=== PATIENT | female | born 2000 | race Caucasian/White ===

== ENCOUNTER 2019-10-23 16:56 | Inpatient (IN) ==
[2019-10-23] MEDS ORDERED: ONDANSETRON 4 MG/2 ML VIAL IV ONE (17:38)
[2019-10-23] MEDS ORDERED: LACTATED RINGERS 1,000 ML IV ONE (17:38)
--- NOTE | 2019-10-23 17:41 | Emergency Department Note ---
HPI General Chief complaint: Sorethroat Stated complaint: sorethroat Time Seen by Provider: 10/23/19 17:11 Source: patient Mode of arrival: ambulatory Limitations: no limitations History of Present Illness HPI Narrative: Narrative: This patient has been ill for the last 2 days with sore throat slight chest discomfort but no cough or shortness of breath. Has also had nausea and vomiting but no diarrhea or abdominal pain. Nothing is making the sore throat worse or better doing the strep swab made her vomit. This patient has apparently had some borderline diabetes in the past and does not have a family history of diabetes in a.m. Onset (ago): day(s) Related Data Home Medications Medication Instructions Recorded Confirmed No Known Home Meds 09/14/17 10/23/19 Allergies Allergy/AdvReac Type Severity Reaction Status Date / Time egg Allergy Unknown Verified 10/23/19 16:58 Influenza Virus Vaccines Allergy Unknown Verified 10/23/19 16:58 Review of Systems ROS ROS Narrative: Narrative: All systems ED: reviewed and negative except as stated. PFSH Narrative Patient History Narrative: Narrative: Medical/Surgical/Family History All Active Problems (Updated 10/23/19 @ 20:43 by Vidal Valera MD) Influenza (Acute) Late menstruation (Acute) Dysmenorrhea (Acute) Exposure to blood or body fluid (Acute) Diabetic keto-acidosis (Acute) Social History Smoking Status: Never smoker Exam Narrative Narrative: Narrative: General Limitations: no limitations Head Head: atraumatic, normocephalic and normal inspection Eye Eye: Present normal appearance, PERRL and EOMI; Absent conjunctival injection ENT ENT: Present normal oropharynx and mucous membranes moist Neck Neck: Present normal inspection and full ROM Chest Chest: Present normal inspection and symmetric chest wall rise Respiratory Respiratory: Present normal lung sounds bilaterally; Absent respiratory distress, rales/crackles and wheezes Cardiovascular Cardiovascular: Present regular rate, normal rhythm and normal heart sounds Adbominal Abdominal: Present soft; Absent distention and tenderness Neurological Neurological: Present alert Psychiatric Psychiatric: Present normal affect Skin Skin: Present warm and dry; Absent diaphoresis Course Vital Signs Vital signs: Vital Signs Temperature 99.4 F H 10/23/19 17:04 Pulse Rate 124 H 10/23/19 17:04 Respiratory Rate 20 10/23/19 17:04 Blood Pressure 157/80 10/23/19 17:04 Temperature 99.4 F H 10/23/19 17:04 Pulse Rate 112 H 10/23/19 18:10 Respiratory Rate 16 10/23/19 20:38 Blood Pressure 135/68 10/23/19 20:38 Pulse Oximetry (%) 97 10/23/19 20:38 MDM MDM Narrative Medical decision making narrative: Narrative: This patient appears to have new diagnosis of diabetes. Blood sugar was 359 hemoglobin A1c was 13.2 and beta hydroxybutyrate was 5.5. Her anion gap was 20 1T CO2 of 15. She was hydrated and given 5 mg of regular insulin IV. I discussed the case with the hospitalist and she will be admitted to the hospital service. Lab Data Lab results reviewed: Yes I reviewed the patient's lab results. Result diagrams: 10/23/19 18:00 10/23/19 18:00 Labs: Lab Results 10/23/19 10/23/19 10/23/19 Range/Units 18:00 18:00 18:00 WBC 8.9 (4.50-11.00) K/mcL RBC 4.19 (3.59-5.38) M/mcL Hgb 12.7 (11.2-15.7) g/dL Hct 37.7 (34.1-44.9) % MCV 90.0 (80.0-100.0) fL MCH 30.3 (26.0-34.0) pg MCHC 33.7 (31.0-36.0) g/dL RDW 13.3 (11.5-14.5) % Plt Count 195 (140-440) K/mcL MPV 11.4 H (7.4-10.4) fL Gran % 74.7 (38.0-78.0) % Lymph % (Auto) 17.6 (15.5-49.0) % Fleming % (Auto) 6.0 (1.0-12.0) % Eos % (Auto) 1.1 (0.0-7.0) % Baso % (Auto) 0.6 (0.0-2.0) % Gran # 6.61 (1.80-8.00) K/mcL Lymph # (Auto) 1.56 (1.50-4.80) K/mcL Fleming # (Auto) 0.53 (0.10-0.90) K/mcL Eos # (Auto) 0.10 (0.00-0.70) K/mcL Baso # (Auto) 0.05 (0.00-0.30) K/mcL Sodium 132 L (133-145) mmol/L Potassium 3.9 (3.3-5.1) mmol/L Chloride 96 (96-108) mmol/L Carbon Dioxide 15 L (22-30) mmol/L Anion Gap 21.0 H (8-16) BUN 6 (6-20) mg/dl Creatinine 0.7 (0.6-1.1) mg/dl GFR Calculation 124 Glucose 359 H (70-105) mg/dL Hemoglobin A1c 13.2 H (4.0-6.0) % HGB Estim Average Glucose 332 mg/dL Calcium 9.4 (8.6-10.4) mg/dl Total Bilirubin 0.6 (0.0-1.0) mg/dL AST 141 H (0-37) U/l ALT 170 H (0-40) U/l Alkaline Phosphatase 131 H (39-117) U/L Total Protein 7.4 (5.9-8.4) gm/dL Albumin 3.9 (3.2-5.2) gm/dL Globulin 3.5 (2.2-3.7) gm/dL Albumin/Globulin Ratio 1.1 (1.0-2.3) Beta-Hydroxybutyrate 5.50 H (< 0.27) mmol/L Radiology Data Radiology results reviewed: Yes I reviewed the patient's radiology results. Discharge Plan Patient/Caregiver Discharge Instructions Pt seen by DOCUMENTATION CLERK/PA only: No Clinical Impression: Diabetic keto-acidosis Patient Disposition: Xfer As Inpt ([facility]) Follow up with: No,PCP [Primary Care Provider] - Prescriptions: No Action No Known Home Meds RF: 0
[2019-10-23 18:39] LABS: Basophils # (Auto) 0.05 K/mcL (0.00-0.30); Basophils % (Auto) 0.6 % (0.0-2.0); Eosinophils % (Auto) 1.1 % (0.0-7.0); Granulocytes % (Auto) 74.7 % (38.0-78.0); Hematocrit 37.7 % (34.1-44.9); Hemoglobin 12.7 g/dL (11.2-15.7); Lymphocytes # (Auto) 1.56 K/mcL (1.50-4.80); Lymphocytes % (Auto) 17.6 % (15.5-49.0); Mean Corpuscular HGB Conc 33.7 g/dL (31.0-36.0); Mean Platelet Volume 11.4 fL (7.4-10.4); Monocytes # (Auto) 0.53 K/mcL (0.10-0.90); Platelet Count 195 K/mcL (140-440); RBC 4.19 M/mcL (3.59-5.38); Red Cell Distribution Width 13.3 % (11.5-14.5); WBC 8.9 K/mcL (4.50-11.00)
[2019-10-23 19:00] LABS: ALT/SGPT 170 U/l (0-40); AST/SGOT 141 U/l (0-37); Albumin 3.9 gm/dL (3.2-5.2); Albumin/Globulin Ratio 1.1 (1.0-2.3); Alkaline Phosphatase 131 U/L (39-117); Bilirubin,Total 0.6 mg/dL (0.0-1.0); Blood Urea Nitrogen 6 mg/dl (6-20); Calcium 9.4 mg/dl (8.6-10.4); Carbon Dioxide 15 mmol/L (22-30); Chloride 96 mmol/L (96-108); Globulin 3.5 gm/dL (2.2-3.7); Glomerular Filtration Rate 124; Glucose 359 mg/dL (70-105)
[2019-10-23] MEDS ORDERED: 0.9 % SODIUM CHLORIDE 1,000 ML IV ONE (19:34)
[2019-10-23] MEDS ORDERED: INSULIN REGULAR, HUMAN 1 UNIT/0.01 ML UNIT IV ONE (19:35)
[2019-10-23 20:08] LABS: Estimated Average Glucose(eAG) 332 mg/dL; Hemoglobin A1C 13.2 % HGB (4.0-6.0)
[2019-10-23] MEDS ORDERED: INSULIN REGULAR, HUMAN 50 UNIT in 0.9 % SODIUM CHLORIDE 99.5 ML IV SCH ×2 (20:45→22:08)
[2019-10-23] MEDS ORDERED: INSULIN REGULAR, HUMAN 1 UNIT/0.01 ML UNIT ONE (20:57)
--- NOTE | 2019-10-23 21:17 | Ultrasound Report ---
INDICATION: liver, GB TECHNIQUE: Grayscale and color flow Doppler spectral imaging COMPARISON: None. FINDINGS: Gallbladder:Negative. No cholelithiasis. No gallbladder wall thickening or pericholecystic fluid Common bile duct:No intra or extrahepatic bile duct dilatation.. Common bile duct measures4 mm Liver:No solid or cystic hepatic mass. Liver contour is smooth. No ascites. Liver is mildly echogenic. There is attenuation of sound relative to the right kidney suggesting hepatic steatosis. No focal abnormality. Liver actpxecy98.9 cm Portal vein:Normal hepatopedal portal venous flow Pancreas:Visualized portions of the pancreas are normal IMPRESSION: 1. Mildly echogenic liver 2. Otherwise negative examination Interpreted and Authenticated by: Vern Franklin 10/23/19
--- NOTE | 2019-10-23 21:20 | Internal Med History&Physical ---
HPI History of Present Illness Patient information: Note initiated : 10/23/19 at 9:13 pm Service Date, if different from initiated Date: [] Patient: Colette De La Rosa a 19 y/o F admitted on for sorethroat. Chief Complaint: [] History of present illness: Ms. De La Rosa is a 19 year old F Presents the ED with sore throat for the last couple days. He denies being around any sick contacts or any with coronavirus. She may feel little fatigued. she had nausea vomiting but no diarrhea or abdominal pain. Mild headache. Rapid strep screen was negative in the ED. Complaint of polyuria polydipsia. She is not aware of of the diagnosis of diabetes although she is believes she is on glipizide. She also is on metformin but she does have polycystic ovarian syndrome. In ER she was evaluated and labs presented are concerning for new diabetes, DKA status. Blood glucose was 359 with a bicarb of 15. A1c is 13. She had mildly elevated liver enzymes. Liver ultrasound showed fatty liver per ER physician. He was also tested for COVID. Review of Systems: Positive as above. Denies fever/chills/chest or abdominal pain/cough/dyspnea/diarrhea. Remaining 10 point review of system reviewed negative. PFSH PFSH All Active Problems (Updated 10/23/19 @ 20:43 by Vidal Valera MD) Influenza (Acute) Late menstruation (Acute) Dysmenorrhea (Acute) Exposure to blood or body fluid (Acute) Diabetic keto-acidosis (Acute) Social History (Updated 10/23/19 @ 21:17 by Liam Scott DO) smoking status: Never smoker additional history: Past medical history: PCOS obesity She is not aware of a diagnosis of diabetes but she says she is on glipizide Past surgical history: None Family history: Mother had hyperlipidemia and she does not know her father's history Social history: Patient denies tobacco drinks alcohol socially denies drug use lives with family MEDS/ALLERGIES Home Medications and Allergies Home Medications Medication Instructions Recorded Confirmed Type No Known Home Meds 09/14/17 10/23/19 History Allergies Allergy/AdvReac Type Severity Reaction Status Date / Time egg Allergy Unknown Verified 10/23/19 16:58 Influenza Virus Vaccines Allergy Unknown Verified 10/23/19 16:58 EXAM Constitutional Vitals: Temp Pulse Resp BP Pulse Ox 99.4 F H 112 H 16 135/68 97 10/23/19 17:04 10/23/19 18:10 10/23/19 20:38 10/23/19 20:38 10/23/19 20:38 Exam: General: Alert, Awake, No acute Distress, obese Eyes/N/T: EOMI, PERRL, dry MM Head/Neck: neck supple, normocephalic atraumatic CV: RRR, No murmurs, normal s1/s2 Pulm: Clear b/l, no wheezing/rhonchi/rales Abd: soft, nontender, +BS x4 Ext: no clubbing/cyanosis/edema Neuro: Alert, no focal deficits, moves all extremities, CN 2-12 grossly intact, symmetrical strength b/l upper/lower, sensations intact b/l upper/lower Skin: warm/dry DATA Data Completed and Pending Labs: Labs from last 24 hours 10/23/19 10/23/19 10/23/19 18:13 18:00 18:00 WBC RBC Hgb Hct MCV MCH MCHC RDW Plt Count MPV Gran % Lymph % (Auto) [place] % (Auto) Eos % (Auto) Baso % (Auto) Gran # Lymph # (Auto) [place] # (Auto) Eos # (Auto) Baso # (Auto) Sodium Potassium Chloride Carbon Dioxide Anion Gap BUN Creatinine GFR Calculation Glucose Hemoglobin A1c Estim Average Glucose Calcium Total Bilirubin AST ALT Alkaline Phosphatase Total Protein Albumin Globulin Albumin/Globulin Ratio Beta-Hydroxybutyrate TSH Pending Monoscreen Pending SARS-CoV-2 (PCR) Pending 10/23/19 10/23/19 10/23/19 18:00 18:00 18:00 WBC 8.9 RBC 4.19 Hgb 12.7 Hct 37.7 MCV 90.0 MCH 30.3 MCHC 33.7 RDW 13.3 Plt Count 195 MPV 11.4 H Gran % 74.7 Lymph % (Auto) 17.6 [place] % (Auto) 6.0 Eos % (Auto) 1.1 Baso % (Auto) 0.6 Gran # 6.61 Lymph # (Auto) 1.56 [place] # (Auto) 0.53 Eos # (Auto) 0.10 Baso # (Auto) 0.05 Sodium 132 L Potassium 3.9 Chloride 96 Carbon Dioxide 15 L Anion Gap 21.0 H BUN 6 Creatinine 0.7 GFR Calculation 124 Glucose 359 H Hemoglobin A1c 13.2 H Estim Average Glucose 332 Calcium 9.4 Total Bilirubin 0.6 AST 141 H ALT 170 H Alkaline Phosphatase 131 H Total Protein 7.4 Albumin 3.9 Globulin 3.5 Albumin/Globulin Ratio 1.1 Beta-Hydroxybutyrate 5.50 H TSH Monoscreen SARS-CoV-2 (PCR) A/P Narrative A/P Narrative: A: *DM (?new diagnosis as pt not aware of dx but she states she's on glipizide), with DKA: -A1c 13.2 *AG Met Acidosis: 2/2 above *Mild transaminitis: 2/2 likely fatty liver as noted on ultrasound vs viral *Pharyngitis: quick strep neg, covid pending *Obesity: * P: -insulin gtt then when gap closed> lantus, SSI, Metformin -IVF -f/u electrolytes and AG -hepatitis panel -pending covid and monospot -DM education, dietary/lifestyle changes -autoantibodies -TSH -medication reconciliation -ppx: lovenox Time Spent With Patient Time: Total time spent is greater than 50% in coordination of care (as documented) at patient's floor/unit and/or counseling patient:
[2019-10-23 21:34] LABS: Thyroid Stimulating Hormone 1.13 uIU/ml (0.27-5.01)
[2019-10-23 21:50] LABS: ABG Methemoglobin 0.3 % (0.4-1.5); Total Hemoglobin 11.2 gm/dL (12.0-15.0); VBG Base Excess -7.3 (-2.0-2.0); VBG HCO3 17.4 mmol/L (24.0-28.0); VBG Oxygen Saturation 82.5 % (40.0-70.0); VBG PCO2 32.7 mmHg (41.0-51.0); VBG PH 7.35 U (7.32-7.42); VBG PO2 60 mmHg (25-40); VBG Total CO2 18.4 mmol/L (25.0-29.0)
[2019-10-23] MEDS: INSULIN REGULAR, HUMAN 50 UNIT in 0.9 % SODIUM CHLORIDE 99.5 ML IV SCH (22:00)
[2019-10-23] MEDS ORDERED: POLYETHYLENE GLYCOL 3350 17 GM PACKET PO PRN (22:08)
[2019-10-23] MEDS ORDERED: POTASSIUM CHLORIDE 40 MEQ in DEXTROSE 5% IN WATER 500 ML IV PRN (22:08)
[2019-10-23] MEDS ORDERED: SENNOSIDES 1 TABLET PO PRN (22:08)
[2019-10-23] MEDS ORDERED: 0.9 % SODIUM CHLORIDE 1,000 ML IV SCH (22:08)
[2019-10-23] MEDS ORDERED: POTASSIUM CHLORIDE 20 MEQ TABLET PO PRN (22:08)
[2019-10-23 22:15] LABS: Amphetamine Screen,Urine NONE DETECTED (NONDETECTED); Barbiturate Screen,Urine NONE DETECTED (NONDETECTED); Benzodiazepines Screen,Urine NONE DETECTED (NONDETECTED); Cannabinoid Screen,Urine NONE DETECTED (NONDETECTED); Cocaine Screen,Urine NONE DETECTED (NONDETECTED); Opiate Screen,Urine NONE DETECTED (NONDETECTED); Oxycodone, Urine Screen NONE DETECTED (NONDETECTED); Phencyclidine Screen,Urine NONE DETECTED (NONDETECTED)
[2019-10-23 22:38] LABS: Appearance,Urine CLEAR; Bacteria,Urine 0 /hpf (0); Bilirubin,Urine NEG (NEG); Color,Urine YELLOW; Culture Indicated,Urine NO; Glucose,Urine (UA) >=500 mg/dL (NEG); Ketones,Urine 80 mg/dL (NEG); Leukocyte Esterase,Urine NEG /uL (NEG); Mucus,Urine FEW /hpf (0); Nitrate,Urine NEG (NEG); Protein,Urine 30 mg/dL (NEG); Specific Gravity,Urine 1.038 (1.000-1.035); Urine Blood NEG mg/dL (<0.03); Urine Budding Yeast FEW /hpf (0); Urine RBC 0 /hpf (0-1); Urine Squamous Epithelial Cell 8 /hpf (0-4); Urine WBC 1 /hpf (0-4); Urobilinogen,Urine NEG (NEG)
[2019-10-23] MEDS: DEXTROSE 5%-NS 1,000 ML IV SCH (23:00)
[2019-10-23 23:40] LABS: HDL Cholesterol 18 mg/dl (>40); Non-HDL Cholesterol 273 (LDL TARGET+30); Phosphorous 2.9 mg/dL (2.7-4.5); Triglycerides 1099 mg/dl (<150)
[2019-10-24] MEDS: 0.9 % SODIUM CHLORIDE 10 ML SYRINGE IV SCH ×4 (00:04→20:14)
[2019-10-24] MEDS ORDERED: ACETAMINOPHEN 325 MG TABLET PO ONE (00:34)
[2019-10-24] MEDS: DEXTROSE 5%-NS 1,000 ML IV SCH ×3 (06:08→20:08)
--- NOTE | 2019-10-24 07:35 | Internal Med Progress Note ---
SUBJECTIVE Subjective Patient information: Note initiated : 10/24/19 at 7:32 am Service Date, if different from initiated Date: [] Patient: Colette De La Rosa a 19 y/o F admitted on 10/23/19 for sorethroat. Chief Complaint: [] Interval history: History of present illness: Ms. De La Rosa is a 19 year old F Presents the ED with sore throat for the last couple days. He denies being around any sick contacts or any with coronavirus. She may feel little fatigued. she had nausea vomiting but no diarrhea or abdominal pain. Mild headache. Rapid strep screen was negative in the ED. Complaint of polyuria polydipsia. She is not aware of of the diagnosis of diabetes although she is believes she is on glipizide. She also is on metformin but she does have polycystic ovarian syndrome. In ER she was evaluated and labs presented are concerning for new diabetes, DKA status. Blood glucose was 359 with a bicarb of 15. A1c is 13. She had mildly elevated liver enzymes. Liver ultrasound showed fatty liver per ER physician. He was also tested for COVID. 10/23 has some nausea and headache but otherwise no new complaints. Tolerating liquids. Follow-up chemistry panel at noon and likely wean off insulin drip to subcutaneous long-acting. Awaiting home med clarification. Review of Systems: denies fever/chills/vomiting/chest or abdominal pain/cough/dyspnea/diarrhea. Otherwise see above. Constitutional Vitals: Vital Signs Temp Pulse Resp BP Pulse Ox 97.8 F 100 H 22 112/67 94 10/24/19 04:08 10/24/19 07:01 10/24/19 07:01 10/24/19 07:01 10/24/19 07:01 Period Temp Pulse Resp BP Sys/Barnes Pulse Ox Last 24 Hr 97.8 F-99.4 F 95-124 16-28 112-163/62-94 94-98 Intake and Output 10/23/19 10/24/19 10/24/19 21:59 05:59 13:59 Intake Total 1999 1053 327 Output Total 500 Balance 1999 553 327 Weight 98.883 kg Intake & Output: Intake & Output 10/23/19 10/24/19 10/24/19 21:59 05:59 13:59 Intake Total 19993 327 Output Total 500 Balance 1999 553 327 Weight 98.883 kg Intake: IV 1999 1053 27 Sodium Chloride 0.9% 1,000 ml @ 1000 Wide Open IV BOLUS ONE Rx#: [id number] Dextrose 5%-Ns IV Solution 1, 1000 000 ml @ 150 mls/hr IV .Q6H40M [facility] Rx#:[id number] HumuLIN R 50 UNIT In Sodium 53 27 Chloride 0.9% 99.5 ml @ 1 UNIT/ HR 2 mls/hr IV DUR [facility] Rx#: [id number] Lactated Ringers 1,000 ml @ 1000 Wide Open IV BOLUS ONE Rx#: [id number] GI Tube Flush 300 Output: Void Amount 500 Exam: General: Alert, Awake, No acute Distress, obese Eyes/N/T: EOMI, Head/Neck: neck supple, CV: RRR, No murmurs, Pulm: Clear b/l, no wheezing/rhonchi/rales Abd: soft, nontender, +BS x4 Ext: no clubbing/cyanosis/edema Neuro: Alert, no focal deficits, moves all extremities, Skin: warm/dry OBJ DATA Labs CBC & Chem 7: 10/23/19 18:00 10/24/19 05:00 Labs: Abnormal Lab Results 10/23/19 10/23/19 10/23/19 22:38 21:26 20:36 MPV ABG Methemoglobin 0.3 L VBG pCO2 32.7 L VBG pO2 60 H VBG HCO3 17.4 L VBG Total CO2 18.4 L VBG O2 Saturation 82.5 H VBG Base Excess -7.3 L Carboxyhemoglobin 9.4 H Total Hemoglobin 11.2 L Sodium Carbon Dioxide Anion Gap Glucose Hemoglobin A1c AST ALT Alkaline Phosphatase Triglycerides 1099 H Cholesterol 291 H Non-HDL Cholesterol 273 H HDL Cholesterol 18 L Beta-Hydroxybutyrate Ur Specific [place] 1.038 H Urine Protein 30 A Urine Glucose (UA) >=500 A Urine Ketones 80 A Ur Squamous Epith Cells 8 H Urine Yeast (Budding) Few A 10/23/19 10/23/19 10/23/19 18:00 18:00 18:00 MPV 11.4 H ABG Methemoglobin VBG pCO2 VBG pO2 VBG HCO3 VBG Total CO2 VBG O2 Saturation VBG Base Excess Carboxyhemoglobin Total Hemoglobin Sodium 132 L Carbon Dioxide 15 L Anion Gap 21.0 H Glucose 359 H Hemoglobin A1c 13.2 H AST 141 H ALT 170 H Alkaline Phosphatase 131 H Triglycerides Cholesterol Non-HDL Cholesterol HDL Cholesterol Beta-Hydroxybutyrate 5.50 H Ur Specific [place] Urine Protein Urine Glucose (UA) Urine Ketones Ur Squamous Epith Cells Urine Yeast (Budding) Meds: Medications Acetaminophen (Tylenol) 650 mg PO Q6HP PRN PRN Reason: PAIN/FEVER > 101 Diagnostic Test (Pha) (Accu-Chek) 1 each FS Q1 [facility] Last Admin: 10/24/19 07:00 Dose: 1 each Documented by: Enoxaparin Sodium (Lovenox) 40 mg SQ DAILY [facility] Potassium Chloride 40 meq/ (Dextrose) 520 mls @ 130 mls/hr IV UD PRN PRN Reason: Potassium < 3 Magnesium Sulfate (Magnesium Sulfate) 2 gm in 50 mls @ 50 mls/hr IV UD PRN PRN Reason: Magnesium </= 1.6 Insulin Human Regular 50 unit/ (Sodium Chloride) 100 mls @ 2 mls/hr IV DUR [facility]; Protocol Last Titration: 10/24/19 07:05 Dose: 8.5 unit/hr, 17 mls/hr Documented by: Dextrose/Sodium Chloride (Dextrose 5%-Ns Iv Solution) 1,000 mls @ 150 mls/hr IV .Q6H40M [facility] Stop: 10/25/19 10:00 Last Admin: 10/24/19 06:08 Dose: 150 mls/hr Documented by: Ondansetron HCl (Zofran) 4 mg IV Q4HP PRN PRN Reason: Nausea And Vomiting Polyethylene Glycol (Miralax) 17 gm PO DAILYP PRN PRN Reason: Constipation Potassium Chloride (Kdur) 40 meq PO UD PRN PRN Reason: Potssium is 3-3.5 Potassium Chloride (Kdur) 40 meq PO UD PRN PRN Reason: Potassium < 3 Senna (Senokot) 2 tab PO DAILYP PRN PRN Reason: Constipation Sodium Chloride (Saline Flush) 10 ml IV Q8 PRINCE Last Admin: 10/24/19 06:04 Dose: Not Given Documented by: ABG Interpretation ABG results: 10/23/19 21:26 ABG Methemoglobin 0.3 L VBG pH 7.35 VBG pCO2 32.7 L VBG pO2 60 H VBG HCO3 17.4 L VBG Total CO2 18.4 L VBG O2 Saturation 82.5 H VBG Base Excess -7.3 L A/P Narrative A/P Narrative: A: *DM (?new diagnosis as pt not aware of dx but she states she's on glipizide), with DKA: -A1c 13.2 *AG Met Acidosis: 2/2 above *Mild transaminitis: 2/2 likely fatty liver as noted on ultrasound vs viral. hepatitis neg *Pharyngitis: quick strep & monospot neg, covid pending *Obesity: *HLD: recheck lipids when DKA resolved, will check in AM P: -insulin gtt then when gap closed> lantus, SSI, Metformin -IVF -f/u electrolytes and AG -pending covid and monospot -DM education, dietary/lifestyle changes -medication reconciliation -ppx: lovenox Time Spent With Patient Time: Total time spent is greater than 50% in coordination of care (as d ocumented) at patient's floor/unit and/or counseling patient:
[2019-10-24 07:51] LABS: ALT/SGPT 123 U/l (0-40); AST/SGOT 95 U/l (0-37); Albumin 3.5 gm/dL (3.2-5.2); Albumin/Globulin Ratio 1.3 (1.0-2.3); Alkaline Phosphatase 102 U/L (39-117); Bilirubin,Direct 0.2 mg/dL (0.0-0.3); Bilirubin,Total 0.5 mg/dL (0.0-1.0); Blood Urea Nitrogen 4 mg/dl (6-20); Carbon Dioxide 19 mmol/L (22-30); Chloride 104 mmol/L (96-108); Globulin 2.8 gm/dL (2.2-3.7); Glomerular Filtration Rate 130; Glucose 248 mg/dL (70-105); Lactate Dehydrogenase 140 U/L (94-250); Triglycerides 791 mg/dl (<150); Uric Acid 2.3 mg/dL (2.5-8.0)
[2019-10-24 07:58] LABS: Hepatitis B Surface Antigen NEGATIVE (NEGATIVE); Hepatitis C Virus Antibody NON REACTIVE (NEGATIVE)
[2019-10-24] MEDS: INSULIN REGULAR, HUMAN 50 UNIT in 0.9 % SODIUM CHLORIDE 99.5 ML IV SCH ×4 (08:01→21:17)
[2019-10-24 08:04] LABS: Beta Hydroxybutyrate 1.44 mmol/L (< 0.27)
[2019-10-24] MEDS: POTASSIUM CHLORIDE 20 MEQ TABLET PO PRN ×2 (08:21→14:11)
[2019-10-24] MEDS: ENOXAPARIN 40 MG/0.4 ML SYRINGE SQ SCH (08:21)
[2019-10-24] MEDS: MAGNESIUM SULFATE 2 GM/50 ML BAG IV PRN (08:33)
[2019-10-24] MEDS: BENZOCAINE/MENTHOL 1 LOZENGE PO PRN (11:12)
[2019-10-24] MEDS: 0.9 % SODIUM CHLORIDE 250 ML IV SCH ×2 (11:14→21:17)
[2019-10-24] MEDS: ACETAMINOPHEN 325 MG TABLET PO PRN ×2 (12:27→21:13)
--- NOTE | 2019-10-24 12:50 | XRay Report ---
CLINICAL INFORMATION: fever, hx of asthma, covid test pending COMPARISON: None. FINDINGS: Heart size, mediastinum and pulmonary vessels are normal. Moderate sized infiltrate has developed in the lateral left midlung. No effusion IMPRESSION: Moderate infiltrate - lateral left midlung. Interpreted and Authenticated by: Vern Campos 10/24/19
[2019-10-24 13:17] LABS: Blood Urea Nitrogen 3 mg/dl (6-20); Calcium 8.3 mg/dl (8.6-10.4); Carbon Dioxide 20 mmol/L (22-30); Chloride 108 mmol/L (96-108); Glomerular Filtration Rate 130; Glucose 212 mg/dL (70-105)
[2019-10-24] MEDS: ONDANSETRON 4 MG/2 ML VIAL IV PRN ×2 (16:33→21:13)
[2019-10-24] MEDS ORDERED: IOPAMIDOL 100 ML BOTTLE IV ONE (19:42)
[2019-10-24 21:13] LABS: Calcium 8.8 mg/dl (8.6-10.4); Carbon Dioxide 19 mmol/L (22-30); Chloride 105 mmol/L (96-108); Glomerular Filtration Rate 130; Glucose 150 mg/dL (70-105)
[2019-10-24 21:23] LABS: Blood Urea Nitrogen 2 mg/dl (6-20)
[2019-10-25] MEDS: 0.9 % SODIUM CHLORIDE 250 ML IV SCH (00:37)
[2019-10-25] MEDS: INSULIN REGULAR, HUMAN 50 UNIT in 0.9 % SODIUM CHLORIDE 99.5 ML IV SCH (02:09)
[2019-10-25] MEDS: DEXTROSE 5%-NS 1,000 ML IV SCH ×2 (02:22→09:48)
[2019-10-25] MEDS: ACETAMINOPHEN 325 MG TABLET PO PRN (04:10)
[2019-10-25] MEDS: 0.9 % SODIUM CHLORIDE 10 ML SYRINGE IV SCH ×3 (05:38→22:42)
--- NOTE | 2019-10-25 05:38 | Cat Scan Report ---
CLINICAL INFORMATION: Elevated LFTs and fever COMPARISON: None. TECHNIQUE: Following enteric contrast, 80 cc of Isovue-370 were injected intravenously, and 60 seconds later, 0.625 mm helical slices were obtained from the mid heart through the subtrochanteric regions. Following reconstruction, 2.5 mm sagittal, coronal and axial reformatted images were processed and reviewed at bone, lung and soft tissue windows. Five minutes later, 0.625 mm helical slices were obtained from the mid heart through the kidneys and viewed at soft tissue windows.The exam was performed using radiation dose optimization techniques including, but not limited to, automated exposure control, adjustment of the mA and/or kV according to patient size and use of iterative reconstruction technique. FINDINGS: Lung bases show dense consolidated infiltrate/atelectasis of the lingula. Visualized right middle and lower lobes are unremarkable. No effusions. Visualized heart is normal. A moderate (8 x 4 cm) omental paraesophageal hernia compresses the right lateral wall of the distal esophagus including the GE junction. It is predominantly fat density, as expected, and contains a small amount entrapped fluid superiorly. Abdominal images show gallbladder and bile ducts, liver, both kidneys, adrenal glands, spleen, pancreas and aorta including aortic branches be normal in size, configuration and attenuation without focal lesion. There is no free air, free fluid or adenopathy. Pelvic images show urinary bladder is normal. The uterus is anteflexed and normal in size: 7 x 3 cm. Both ovaries are unremarkable. Stomach, small bowel, appendix and large bowel are unremarkable. Bone windows show no osseous abnormality. IMPRESSION: 1. 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 It is predominantly fat with small amount of fluid entrapped within the hernia sac. It extrinsically compresses the distal esophagus including the GE junction. Typical presenting complaints with this condition include: epigastric pain, nausea and dysphagia. Consider referral for laparoscopic surgery. 2. Completely consolidated atelectasis/infiltrate in the lingula. Interpreted and Authenticated by: Vern Campos 10/25/19
[2019-10-25 06:12] LABS: Chloride 105 mmol/L (96-108)
[2019-10-25 06:19] LABS: ALT/SGPT 82 U/l (0-40); AST/SGOT 56 U/l (0-37); Albumin 2.7 gm/dL (3.2-5.2); Alkaline Phosphatase 86 U/L (39-117); Bilirubin,Direct 0.3 mg/dL (0.0-0.3); Bilirubin,Total 0.6 mg/dL (0.0-1.0); Blood Urea Nitrogen 2 mg/dl (6-20); Calcium 8.1 mg/dl (8.6-10.4); Carbon Dioxide 18 mmol/L (22-30); Globulin 2.8 gm/dL (2.2-3.7); Glomerular Filtration Rate 130; Glucose 172 mg/dL (70-105); Lactate Dehydrogenase 188 U/L (94-250); Phosphorous 2.5 mg/dL (2.7-4.5); Triglycerides 370 mg/dl (<150); Uric Acid 1.1 mg/dL (2.5-8.0)
[2019-10-25 06:20] LABS: HDL Cholesterol 18 mg/dl (>40); LDL Cholesterol,Calculated 71 mg/dl (SEE CHART); Non-HDL Cholesterol 144 (LDL TARGET+30); Triglycerides 367 mg/dl (<150)
[2019-10-25] MEDS: POTASSIUM CHLORIDE 20 MEQ TABLET PO PRN (06:58)
[2019-10-25] MEDS: ONDANSETRON 4 MG/2 ML VIAL IV PRN (07:21)
[2019-10-25] MEDS ORDERED: ALBUTEROL SULFATE 200 PUFF INHALER INH PRN (08:14)
[2019-10-25] MEDS: LEVOFLOXACIN 750 MG/150 ML BAG IV SCH (08:31)
[2019-10-25] MEDS: ENOXAPARIN 40 MG/0.4 ML SYRINGE SQ SCH (08:31)
[2019-10-25] MEDS: LEVOTHYROXINE 50 MCG TABLET PO SCH (08:31)
[2019-10-25] MEDS ORDERED: DEXTROSE 31 GM ORAL.SUSP PO PRN (08:53)
[2019-10-25] MEDS ORDERED: DEXTROSE 50% 50 ML VIAL IV PRN (08:53)
[2019-10-25 08:55] LABS: Basophils # (Auto) 0.02 K/mcL (0.00-0.30); Basophils % (Auto) 0.3 % (0.0-2.0); Eosinophils # (Auto) 0.15 K/mcL (0.00-0.70); Granulocytes % (Auto) 72.2 % (38.0-78.0); Hematocrit 30.6 % (34.1-44.9); Hemoglobin 9.9 g/dL (11.2-15.7); Lymphocytes # (Auto) 1.31 K/mcL (1.50-4.80); Lymphocytes % (Auto) 17.5 % (15.5-49.0); Mean Cell Volume 94.2 fL (80.0-100.0); Mean Corpuscular HGB Conc 32.4 g/dL (31.0-36.0); Mean Platelet Volume 11.9 fL (7.4-10.4); Platelet Count 140 K/mcL (140-440); RBC 3.25 M/mcL (3.59-5.38); Red Cell Distribution Width 13.7 % (11.5-14.5); WBC 7.5 K/mcL (4.50-11.00)
[2019-10-25] MEDS: INSULIN GLARGINE, HUMAN 1 UNIT/0.01 ML SQ SCH (09:10)
[2019-10-25] MEDS: 0.9 % SODIUM CHLORIDE 1,000 ML IV SCH ×3 (09:10→22:40)
--- NOTE | 2019-10-25 10:16 | Internal Med Progress Note ---
SUBJECTIVE Subjective Patient information: Note initiated : 10/25/19 at 10:13 am Service Date, if different from initiated Date: [] Patient: Colette De La Rosa a 19 y/o F admitted on 10/23/19 for sorethroat. Chief Complaint: [] Interval history: History of present illness: Ms. De La Rosa is a 19 year old F Presents the ED with sore throat for the last couple days. He denies being around any sick contacts or any with coronavirus. She may feel little fatigued. she had nausea vomiting but no diarrhea or abdominal pain. Mild headache. Rapid strep screen was negative in the ED. Complaint of polyuria polydipsia. She is not aware of of the diagnosis of diabetes although she is believes she is on glipizide. She also is on metformin but she does have polycystic ovarian syndrome. In ER she was evaluated and labs presented are concerning for new diabetes, DKA status. Blood glucose was 359 with a bicarb of 15. A1c is 13. She had mildly elevated liver enzymes. Liver ultrasound showed fatty liver per ER physician. He was also tested for COVID. 10/23 has some nausea and headache but otherwise no new complaints. Tolerating liquids. Follow-up chemistry panel at noon and likely wean off insulin drip to subcutaneous long-acting. Awaiting home med clarification. 10/24-patient doing a lot better. Weaned off insulin drip and now transitioned to subcu basal insulin. Diabetic education/CC diet. Improving potassium on replacement. COVID pending. Constitutional Vitals: Vital Signs Temp Pulse Resp BP Pulse Ox 98.8 F 105 H 20 120/80 97 10/25/19 08:01 10/25/19 09:01 10/25/19 10:04 10/25/19 10:04 10/25/19 10:04 Period Temp Pulse Resp BP Sys/Barnes Pulse Ox Last 24 Hr 97.7 F-101.7 F 91-118 13-32 102-135/59-81 92-100 Intake and Output 10/24/19 10/25/19 10/25/19 21:59 05:59 13:59 Intake Total 2911 1053 1572 Output Total 825 600 500 Balance 2086 453 1072 Weight 102.194 kg Alert oriented Nonlabored breathing No anxiety Obese Intake & Output: Intake & Output 10/24/19 10/25/1910/24/20 21:59 05:59 13:59 Intake Total 2911 1053 1572 Output Total 825 600 500 Balance 2086 453 1072 Weight 102.194 kg Intake: IV 1401 1053 1232 Sodium Chloride 0.9% 250 ml @ 201 20 mls/hr IV .[id number] [facility] Rx#: [id number] Dextrose 5%-Ns IV Solution 1, 2338 125 6161 000 ml @ 150 mls/hr IV .[id number] [facility] Rx#:[id number] HumuLIN R 50 UNIT In Sodium 200 118 82 Chloride 0.9% 99.5 ml @ 1 UNIT/ HR 2 mls/hr IV DUR [facility] Rx#: [id number] Oral 1510 340 Output: Void Amount 825 600 500 Other: Meal Lunch Snack Breakfast Percent of Meal Consumed 100% 25% 75% Feeding Ability Independent Independent Urine Appearance Cloudy Urine Color [place] Dark [place] Urine Odor Normal OBJ DATA Labs CBC & Chem 7: 10/25/19 05:10 10/25/19 05:10 Labs: Abnormal Lab Results 10/25/19 10/25/19 10/25/19 05:10 05:10 05:10 RBC 3.25 L Hgb 9.9 L Hct 30.6 L MPV 11.9 H Lymph # (Auto) 1.31 L ABG Methemoglobin VBG pCO2 VBG pO2 VBG HCO3 VBG Total CO2 VBG O2 Saturation VBG Base Excess Carboxyhemoglobin Total Hemoglobin Sodium Potassium 3.2 L Carbon Dioxide 18 L Anion Gap BUN 2 L Glucose 172 H Hemoglobin A1c Uric Acid 1.1 L Calcium 8.1 L Phosphorus 2.5 L GGT 77 H AST 56 H ALT 82 H Alkaline Phosphatase Total Protein 5.5 L Albumin 2.7 L Triglycerides 370 H 367 H Cholesterol Non-HDL Cholesterol 144 H HDL Cholesterol 18 L Beta-Hydroxybutyrate Ur Specific [place] Urine Protein Urine Glucose (UA) Urine Ketones Ur Squamous Epith Cells Urine Yeast (Budding) 10/24/19 10/24/19 10/24/19 19:55 11:58 05:00 RBC Hgb Hct MPV Lymph # (Auto) ABG Methemoglobin VBG pCO2 VBG pO2 VBG HCO3 VBG Total CO2 VBG O2 Saturation VBG Base Excess Carboxyhemoglobin Total Hemoglobin Sodium Potassium 3.0 L Carbon Dioxide 19 L 20 L 19 L Anion Gap BUN 2 L 3 L 4 L Glucose 150 H 212 H 248 H Hemoglobin A1c Uric Acid 2.3 L Calcium 8.3 L Phosphorus GGT 90 H AST 95 H ALT 123 H Alkaline Phosphatase Total Protein Albumin Triglycerides 791 H Cholesterol Non-HDL Cholesterol HDL Cholesterol Beta-Hydroxybutyrate 1.44 H Ur Specific [place] Urine Protein Urine Glucose (UA) Urine Ketones Ur Squamous Epith Cells Urine Yeast (Budding) 10/23/19 10/23/19 10/23/19 22:38 21:26 20:36 RBC Hgb Hct MPV Lymph # (Auto) ABG Methemoglobin 0.3 L VBG pCO2 32.7 L VBG pO2 60 H VBG HCO3 17.4 L VBG Total CO2 18.4 L VBG O2 Saturation 82.5 H VBG Base Excess -7.3 L Carboxyhemoglobin 9.4 H Total Hemoglobin 11.2 L Sodium Potassium Carbon Dioxide Anion Gap BUN Glucose Hemoglobin A1c Uric Acid Calcium Phosphorus GGT AST ALT Alkaline Phosphatase Total Protein Albumin Triglycerides 1099 H Cholesterol 291 H Non-HDL Cholesterol 273 H HDL Cholesterol 18 L Beta-Hydroxybutyrate Ur Specific [place] 1.038 H Urine Protein 30 A Urine Glucose (UA) >=500 A Urine Ketones 80 A Ur Squamous Epith Cells 8 H Urine Yeast (Budding) Few A 10/23/19 10/23/19 10/23/19 18:00 18:00 18:00 RBC Hgb Hct MPV 11.4 H Lymph # (Auto) ABG Methemoglobin VBG pCO2 VBG pO2 VBG HCO3 VBG Total CO2 VBG O2 Saturation VBG Base Excess Carboxyhemoglobin Total Hemoglobin Sodium 132 L Potassium Carbon Dioxide 15 L Anion Gap 21.0 H BUN Glucose 359 H Hemoglobin A1c 13.2 H Uric Acid Calcium Phosphorus GGT AST 141 H ALT 170 H Alkaline Phosphatase 131 H Total Protein Albumin Triglycerides Cholesterol Non-HDL Cholesterol HDL Cholesterol Beta-Hydroxybutyrate 5.50 H Ur Specific [place] Urine Protein Urine Glucose (UA) Urine Ketones Ur Squamous Epith Cells Urine Yeast (Budding) Meds: Medications Acetaminophen (Tylenol) 650 mg PO Q6HP PRN PRN Reason: PAIN/FEVER > 101 Last Admin: 10/25/19 04:10 Dose: 650 mg Documented by: Albuterol Sulfate (Ventolin) 2 puff INH Q4HP PRN PRN Reason: Wheezing Dextrose (Dextrose 50%) 0 ml IV UD PRN PRN Reason: Hypoglycemia Diagnostic Test (Pha) (Accu-Chek) 1 each FS Q1 [facility] Last Admin: 10/25/19 10:10 Dose: 1 each Documented by: Diagnostic Test (Pha) (Accu-Chek) 1 each FS [facility] Enoxaparin Sodium (Lovenox) 40 mg SQ DAILY [facility] Last Admin: 10/25/19 08:31 Dose: 40 mg Documented by: Glucose (Insta-Glucose) 15 gm PO PRN PRN PRN Reason: Hypoglycemia Potassium Chloride 40 meq/ (Dextrose) 520 mls @ 130 mls/hr IV UD PRN PRN Reason: Potassium < 3 Magnesium Sulfate (Magnesium Sulfate) 2 gm in 50 mls @ 50 mls/hr IV UD PRN PRN Reason: Magnesium </= 1.6 Last Infusion: 10/24/19 09:33 Dose: Infused Documented by: Insulin Human Regular 50 unit/ (Sodium Chloride) 100 mls @ 2 mls/hr IV DUR [facility]; Protocol Last Titration: 10/25/19 10:12 Dose: Infused Documented by: Sodium Chloride (Sodium Chloride 0.9%) 250 mls @ 20 mls/hr IV .[id number] [facility] Last Admin: 10/25/19 00:37 Dose: Not Given Documented by: Levofloxacin (Levaquin) 750 mg in 150 mls @ 100 mls/hr IV Q24H [facility] Last Infusion: 10/25/19 10:01 Dose: Infused Documented by: Sodium Chloride (Sodium Chloride 0.9%) 1,000 mls @ 150 mls/hr IV .Q6H40M [facility] Last Admin: 10/25/19 09:10 Dose: 150 mls/hr Documented by: Insulin Glargine (Lantus) 40 unit SQ DAILY [facility] Last Admin: 10/25/19 09:10 Dose: 40 unit Documented by: Insulin Human Lispro (Humalog) 0 unit SQ [facility]; Protocol Levothyroxine Sodium (Synthroid) 50 mcg PO QAMAC [facility] Last Admin: 10/25/19 08:31 Dose: 50 mcg Documented by: Ondansetron HCl (Zofran) 4 mg IV Q4HP PRN PRN Reason: Nausea And Vomiting Last Admin: 10/25/19 07:21 Dose: 4 mg Documented by: Polyethylene Glycol (Miralax) 17 gm PO DAILYP PRN PRN Reason: Constipation Potassium Chloride (Kdur) 40 meq PO UD PRN PRN Reason: Potssium is 3-3.5 Last Admin: 10/25/19 06:58 Dose: 40 meq Documented by: Potassium Chloride (Kdur) 40 meq PO UD PRN PRN Reason: Potassium < 3 Senna (Senokot) 2 tab PO DAILYP PRN PRN Reason: Constipation Sodium Chloride (Saline Flush) 10 ml IV Q8 [facility] Last Admin: 10/25/19 05:38 Dose: Not Given Documented by: Throat Lozenges (Cepacol) 1 lozenge PO PRN PRN PRN Reason: Sore Throat Last Admin: 10/24/19 11:12 Dose: 1 lozenge Documented by: ABG Interpretation ABG results: 10/23/19 21:26 ABG Methemoglobin 0.3 L VBG pH 7.35 VBG pCO2 32.7 L VBG pO2 60 H VBG HCO3 17.4 L VBG Total CO2 18.4 L VBG O2 Saturation 82.5 H VBG Base Excess -7.3 L A/P Narrative A/P Narrative: * DKA-clinically improved with management protocol. A1c 13.2. Started on basal panel insulin, weaned off insulin drip. Continue diabetic education/CC diet * Hypokalemia on replacement * Left-sided pneumonia started on Levaquin * full code PLAN * Transition to subcu insulin * Diabetic education * Diabetic diet * Potassium replacement * Await type 1 diabetes work-up Time Spent With Patient Time: Total time spent is greater than 50% in coordination of care (as docume nted) at patient's floor/unit and/or counseling patient:
[2019-10-25] MEDS: INSULIN LISPRO 1 UNIT/0.01 ML UNIT SQ SCH ×3 (11:45→21:10)
[2019-10-25] MEDS: MAGNESIUM SULFATE 2 GM/50 ML BAG IV PRN (12:47)
[2019-10-25] MEDS: BENZOCAINE/MENTHOL 1 LOZENGE PO PRN (14:15)
[2019-10-26 06:25] LABS: Basophils # (Auto) 0.02 K/mcL (0.00-0.30); Basophils % (Auto) 0.3 % (0.0-2.0); Eosinophils # (Auto) 0.12 K/mcL (0.00-0.70); Granulocytes % (Auto) 65.9 % (38.0-78.0); Hematocrit 31.9 % (34.1-44.9); Lymphocytes # (Auto) 1.39 K/mcL (1.50-4.80); Lymphocytes % (Auto) 22.9 % (15.5-49.0); Mean Cell Volume 95.5 fL (80.0-100.0); Mean Corpuscular HGB Conc 31.3 g/dL (31.0-36.0); Mean Platelet Volume 11.7 fL (7.4-10.4); Monocytes # (Auto) 0.54 K/mcL (0.10-0.90); Monocytes % (Auto) 8.9 % (1.0-12.0); Platelet Count 151 K/mcL (140-440); RBC 3.34 M/mcL (3.59-5.38); Red Cell Distribution Width 13.8 % (11.5-14.5); WBC 6.1 K/mcL (4.50-11.00)
[2019-10-26] MEDS: 0.9 % SODIUM CHLORIDE 10 ML SYRINGE IV SCH (06:33)
[2019-10-26 06:51] LABS: ALT/SGPT 65 U/l (0-40); AST/SGOT 50 U/l (0-37); Albumin 2.8 gm/dL (3.2-5.2); Alkaline Phosphatase 106 U/L (39-117); Bilirubin,Direct 0.3 mg/dL (0.0-0.3); Bilirubin,Total 0.5 mg/dL (0.0-1.0); Blood Urea Nitrogen < 2 mg/dl (6-20); Calcium 8.3 mg/dl (8.6-10.4); Carbon Dioxide 20 mmol/L (22-30); Chloride 105 mmol/L (96-108); Globulin 2.8 gm/dL (2.2-3.7); Glomerular Filtration Rate 138; Glucose 192 mg/dL (70-105); Lactate Dehydrogenase 183 U/L (94-250); Phosphorous 3.3 mg/dL (2.7-4.5); Triglycerides 373 mg/dl (<150)
[2019-10-26] MEDS ORDERED: metFORMIN 500 MG TABLET PO SCH (08:00)
[2019-10-26] MEDS: LEVOTHYROXINE 50 MCG TABLET PO SCH (08:12)
[2019-10-26] MEDS: INSULIN LISPRO 1 UNIT/0.01 ML UNIT SQ SCH ×2 (08:12→12:02)
--- NOTE | 2019-10-26 09:44 | Discharge Summary ---
Discharge Provider Provider Patient information: Note initiated : 10/26/19 at 9:40 am Service Date, if different from initiated Date: [] Patient: Colette De La Rosa a 19 y/o F admitted on 10/23/19 for sorethroat. Chief Complaint: [] Discharge diagnosis * DKA-clinically resolved with management protocol. A1c 13.2. Continue basal prandial insulin, off insulin drip. Continue diabetic education/CC diet as outpatient * Hypokalemia resolved with replacement * Left-sided pneumonia continuen Levaquin additional 5 days Brief hospital course History of present illness: Ms. De La Rosa is a 19 year old F Presents the ED with sore throat for the last couple days. He denies being around any sick contacts or any with coronavirus. She may feel little fatigued. she had nausea vomiting but no diarrhea or abdominal pain. Mild headache. Rapid strep screen was negative in the ED. Complaint of polyuria polydipsia. She is not aware of of the diagnosis of diabetes although she is believes she is on glipizide. She also is on metformin but she does have polycystic ovarian syndrome. In ER she was evaluated and labs presented are concerning for new diabetes, DKA status. Blood glucose was 359 with a bicarb of 15. A1c is 13. She had mildly elevated liver enzymes. Liver ultrasound showed fatty liver per ER physician. He was also tested for COVID. 10/23 has some nausea and headache but otherwise no new complaints. Tolerating liquids. Follow-up chemistry panel at noon and likely wean off insulin drip to subcutaneous long-acting. Awaiting home med clarification. 10/24-patient doing a lot better. Weaned off insulin drip and now transitioned to subcu basal insulin. Diabetic education/CC diet. Improving potassium on replacement. COVID pending. 10/25-patient doing well. Kovic negative. Electrolytes normalized. Able to self administer basal panel insulin. Diabetic education initiated. Patient will follow primary care physician and continue outpatient diabetic education. Recommended weight loss/monitoring blood sugars to maintain a tight control. Date of admission: 10/23/19 21:59 Discharge date: 10/26/19 Primary care physician: PCP No Consults: 10/23/19 Consult to Physician [CONS] Stat Comment: Consulting Provider: Liam Scott Reason For Exam: Physician to Consult Discharge Meds Discharge Medications Home Medications albuterol sulfate [ProAir HFA] 2 puff INHALATION Q4H PRN 10/24/19 [History Confirmed 10/24/19 Last Taken 6 Months Ago ~04/23/19] levothyroxine [Euthyrox] See Rx Instructions .ROUTE .COMPLEX 10/24/19 [History Confirmed 10/24/19 Last Taken 1 Month Ago ~09/23/19 50 mcg] metformin 500 mg PO BID 10/24/19 [History Confirmed 10/24/19 Last Taken 1 Month Ago ~09/23/19 500 mg] norgestimate-ethinyl estradiol [Tri-Lo-Marlys] See Rx Instructions .ROUTE .COMPLEX 10/24/19 [History Confirmed 10/24/19 Last Taken 10/22/19 19:00] Accu-Chek 1 each FS ACHS #30 strip 10/26/19 [Rx Last Taken Unknown] insulin glargine [Lantus U-100 Insulin] 40 unit SQ DAILY #30 ml 10/26/19 [Rx Last Taken Unknown] levofloxacin 750 mg PO DAILY #5 tab 10/26/19 [Rx Last Taken Unknown] COURSE Hospital Course Hospital course: ./ Discharge diagnosis: . Time Spent with Patient Time attestation: Total time spent providing and/or coordinating discharge services: EXAM Constitutional Vitals: Temp Pulse Resp BP Pulse Ox 98.8 F 90 16 128/77 92 10/26/19 08:00 10/26/19 06:17 10/26/19 08:00 10/26/19 08:00 10/26/19 08:00 Discharge Data Data Completed and Pending Labs on day of discharge: Labs from last 24 hours 10/26/19 10/26/19 10/23/19 05:05 05:05 18:13 WBC 6.1 RBC 3.34 L Hgb 10.0 L Hct 31.9 L MCV 95.5 MCH 29.9 MCHC 31.3 RDW 13.8 Plt Count 151 MPV 11.7 H Gran % 65.9 Lymph % (Auto) 22.9 [place] % (Auto) 8.9 Eos % (Auto) 2.0 Baso % (Auto) 0.3 Gran # 4.01 Lymph # (Auto) 1.39 L [place] # (Auto) 0.54 Eos # (Auto) 0.12 Baso # (Auto) 0.02 Sodium 138 Potassium 3.6 Chloride 105 Carbon Dioxide 20 L Anion Gap 13.0 BUN < 2 L Creatinine 0.5 L GFR Calculation 138 Glucose 192 H Uric Acid 1.0 L Calcium 8.3 L Phosphorus 3.3 Magnesium 2.0 Total Bilirubin 0.5 Direct Bilirubin 0.3 GGT 79 H AST 50 H ALT 65 H Alkaline Phosphatase 106 Lactate Dehydrogenase 183 Total Protein 5.6 L Albumin 2.8 L Globulin 2.8 Albumin/Globulin Ratio 1.0 Triglycerides 373 H SARS-CoV-2 (PCR) Not detected Preliminary micro results at discharge 10/24/19 12:56 Blood Culture - Preliminary Blood 10/24/19 12:46 Blood Culture - Preliminary Blood Discharge Plan Patient/Caregiver Discharge Instructions Activity: increase activity as tolerated Diet: Consistent Carbohydrate Instructions: Metformin (By mouth), Levofloxacin (By mouth), Insulin Glargine (By injection), Heart Healthy Diet (GEN), Diabetic Ketoacidosis (GEN), Meal Planning with Diabetes Exchanges (GEN) Activity Restrictions/Additional Instructions: Follow-up PCP in 5 to 7 days Continue basal insulin and titrate with fasting a.m. blood sugars Continue metformin PCP to address/optimize DM management. Work-up investigation for type I pending. PCP to follow-up on labs including islet cell antibody/SHAYAN antibody results Please schedule outpatient diabetic education appointment with Radha Castillo ext. [phone] This discharge packet is provided to you to help keep you informed about your care. We want to ensure you get everything you need when you go home. You will also be receiving a call from us in a few days to follow up with you and see how you are doing since your discharge. This gives us a chance to listen to any concerns you maybe experiencing since you were discharged or any additional needs you may have, as well as providing us feedback on your care experience. We strive to always provide excellent care and thank you for your feedback and for choosing [facility]. Prescriptions: New Accu-Chek 1 each FS ACHS Qty: 30 RF: 0 Lantus U-100 Insulin 100 unit/mL Solution 40 unit SQ DAILY Qty: 30 RF: 0 levofloxacin [levofloxacin] 750 MG tablet 750 mg PO DAILY Qty: 5 RF: 0 Continued levothyroxine [Euthyrox] 50 mcg tablet See Rx Instructions .ROUTE .COMPLEX RF: 0 metformin 500 mg tablet 500 mg PO BID RF: 0 norgestimate-ethinyl estradiol [Tri-Lo-Marlys] 0.18/0.215/0.25 mg-25 mcg tablet See Rx Instructions .ROUTE .COMPLEX RF: 0 albuterol sulfate [ProAir HFA] 90 mcg/actuation HFA aerosol inhaler 2 puff INHALATION Q4H PRN (Reason: Wheezing) RF: 0 Discontinued glipizide 10 mg tablet See Rx Instructions .ROUTE .COMPLEX RF: 0 Follow Up Plan Follow up with: Geovanny Little DO [Physician] - 11/04/19 11:00 am Patient Disposition: Home, Self-Care Rehab Potential: Fair I certify that the patient requires SNF services: No Overall status at discharge: patient is back to baseline Discharge Date/Time: 10/26/19 13:30 Discharge Orders: Discharge Order (Routine); Ordered 10/26/19 Ordered By: Flavio Gramajo Discharge Comment: Ambulated to vehicle with significant other
[2019-10-26] MEDS: INSULIN GLARGINE, HUMAN 1 UNIT/0.01 ML SQ SCH (09:58)
[2019-10-26] MEDS: LEVOFLOXACIN 750 MG/150 ML BAG IV SCH (09:59)
[2019-10-26] MEDS: ENOXAPARIN 40 MG/0.4 ML SYRINGE SQ SCH (09:59)
[2019-10-26] MEDS: 0.9 % SODIUM CHLORIDE 1,000 ML IV SCH ×2 (10:30→12:03)
== END 2019-10-26 13:30 | disposition home or self-care (01) | DRG 637 ==
LOC: ED 16:56 → ICU 21:59
PROVIDERS: ADMIT Internal Medicine; ATTEND Internal Medicine